=== PATIENT | female | born 1970 | race Caucasian/White ===

== ENCOUNTER → 2020-03-14 11:57 | Outpatient (CLI) | payer OTHER, SELFPAY ==
[2020-03-14 13:43] LABS: Free T3, Triiodothyronine Free 4.12 pg/mL (2.77-5.27); Free T4, Direct Thyroxine 0.86 ng/dL (0.78-2.19)
[2020-03-14 14:06] LABS: Thyroid Stimulating Hormone 0.933 uIU/mL (0.47-4.68)
[2020-03-15 06:09] LABS: Thyroid Peroxidase Antibodies <9 IU/mL (0-34)
[2020-03-15 20:08] LABS: Anti Thyroglobulin Antibody <1.0 IU/mL (0.0-0.9)
[2020-03-20 07:39] LABS: Triiodothyronine T3 Reverse 14.5 ng/dL (9.2-24.1)
== END ==
PROVIDERS: Family Provider Family Medicine; PCP Family Medicine; Referring Provider Family Medicine; Visit Provider Family Medicine
DX: E03.9 Hypothyroidism, unspecified (principal)
CPT/HCPCS: 36415; 84439; 84443; 84481; 84482; 86376; 86800

== ENCOUNTER → 2020-05-12 12:16 | Outpatient (CLI) | payer OTHER, SELFPAY ==
--- NOTE | 2020-05-12 12:17 | DI.MRI.S_ITS ---
PROCEDURE: MR CERVICAL SPINE WO CON INDICATIONS: worsening neck pain, known degenerative ds last mri 2010 TECHNIQUE: Noncontrast sagittal T1 spin echo and T2 fast spin echo, sagittal STIR, foraminal oblique sagittal T2 fast spin echo, and axial gradient echo or T2 fast spin echo through the cervical spine. COMPARISON: [facility], MR, C-SPINE WITHOUT CONTRAST, 05/08/2009, 17:00. [facility], MR, C-SPINE WITHOUT CONTRAST, 06/08/2008, 17:38. [facility], MR, C-SPINE WITHOUT CONTRAST, 01/07/2013, 19:04. FINDINGS: Image quality: Excellent. Alignment and Curvature: There is progressive reversal of the normal cervical lordosis compared to 2013, with the apex at the C4-C5 level. Bone Marrow: Marrow demonstrates normal overall signal. Spinal Cord: Visualized spinal cord has normal size and signal. No cerebellar tonsillar herniation. Paraspinous Soft Tissues: No paravertebral masses. Prevertebral soft tissues are normal in thickness. C2-C3: The disc height is well-preserved. Loss of disc signal is seen at this level. Mild to moderate disc osteophyte complex is seen, which is eccentric to the right. There is a mild right foraminal disc osteophyte protrusion seen. There is mild right-sided and [id number] left-sided facet hypertrophy seen. No significant neural foraminal or central canal narrowing can be seen. When comparison is made with the prior examination, these findings are similar. C3-C4: The disc height is well-preserved. Loss of disc signal is seen at this level. Moderate disc osteophyte complex is seen, with a central disc osteophyte protrusion. Mild to moderate facet hypertrophy is seen. There is at least moderate bilateral neural foraminal narrowing seen. Mild to moderate central canal narrowing is seen. There is associated mass effect upon the ventral spinal cord. These imaging findings have progressed compared to the prior study. C4-C5: [id number]-ub-[id number] loss of disc height and disc signal can be seen. Moderate disc osteophyte complex is seen, with a central/right disc osteophyte extrusion, with mild inferior migration of the disc material, as on series 4, images 24 and 25 and on series 3, image 7. There is mild right-sided and [id number] left-sided facet hypertrophy seen. There is at least moderate bilateral neural foraminal narrowing seen. Moderate central canal narrowing is seen. There is associated mass effect upon the ventral spinal cord. There has been progression compared to 2013. C5-C6: Moderate loss of disc height is seen. Loss of disc signal is seen. Moderate disc osteophyte complex is seen, which is eccentric to the right, with a right lateral recess/foraminal disc osteophyte protrusion seen. No vertebral there is eojx-fo-yosbwugr bilateral neural foraminal narrowing seen. There is moderate to severe right-sided and at least moderate left-sided neural foraminal narrowing seen. Moderate central canal narrowing is seen. Compared to 2013, these degenerative changes have mildly progressed. C6-C7: Moderate loss of disc height is seen. Loss of disc signal is seen. Moderate generalized disc osteophyte complex is seen. There is a mild central disc osteophyte extrusion seen. Uncovertebral joint hypertrophy is seen at this level. Mild facet joint hypertrophy is seen. There is moderate to severe right-sided and moderate left-sided neural foraminal narrowing seen. At least moderate central canal narrowing is seen. There is associated mass effect upon the ventral spinal cord. These imaging findings have progressed compared to the prior study. C7-T1: No significant abnormality is seen. Note is again made of incomplete segmentation at the T2-T3 level. IMPRESSION: Multiple levels of prominent cervical spine degenerative change are seen, which have progressed compared to 2013. Dictated by: Vick Jason M.D. on 05/12/2020 at 12:32 Approved by: Vick Jason M.D. on 05/12/2020 at 12:38
== END ==
PROVIDERS: Family Provider Family Medicine; PCP Family Medicine; Referring Provider Family Medicine; Visit Provider Family Medicine
DX: M47.812 Spondylosis without myelopathy or radiculopathy, cervical region (principal); M54.2 Cervicalgia; R20.2 Paresthesia of skin
CPT/HCPCS: 72141

== ENCOUNTER → 2021-02-02 09:26 | Outpatient (CLI) | payer OTHER, SELFPAY ==
[2021-02-02 10:25] LABS: Alanine Aminotransferase 25 IU/L (<35); Albumin 4.1 g/dL (3.5-5.0); Albumin Globulin Ratio 1.5 (1.0-2.8); Alkaline Phosphatase 41 U/L (38-126); Aspartate Aminotransferase 24 IU/L (14-36); BUN Creatinine Ratio 26.7 (6-22); Bilirubin Total 0.5 mg/dL (0.2-1.3); Blood Urea Nitrogen 20 mg/dL (7-17); Calcium 9.9 mg/dL (8.4-10.2); Carbon Dioxide 28 mmol/L (22-32); Chloride 105 mmol/L (98-107); Cholesterol 206 mg/dL (140-199); Estimated Glomerular Filt Rate > 60.0 mL/min (>60); Globulin 2.7 g/dL (1.7-4.1); Glucose 106 mg/dL (70-100); HDL Cholesterol 68 mg/dL (40-60); HEMOLYSIS < 15 (0-50); LDL Cholesterol Calculated 126 mg/dL (<100); Potassium 4.5 mmol/L (3.4-5.1); Sodium 139 mmol/L (137-145); Total Protein 6.8 g/dL (6.3-8.2); Triglycerides 62 mg/dL (35-150)
[2021-02-02 10:39] LABS: Free T3, Triiodothyronine Free 5.31 pg/mL (2.77-5.27); Free T4, Direct Thyroxine 0.95 ng/dL (0.78-2.19)
[2021-02-02 10:53] LABS: Thyroid Stimulating Hormone 1.58 uIU/mL (0.47-4.68)
[2021-02-02 10:55] LABS: Estradiol, Total 28.5 pg/mL
== END ==
PROVIDERS: Family Provider Family Medicine; PCP Family Medicine; Referring Provider Family Medicine; Visit Provider Family Medicine
DX: E03.9 Hypothyroidism, unspecified (principal); Z13.1 Encounter for screening for diabetes mellitus; Z13.220 Encounter for screening for lipoid disorders; N95.1 Menopausal and female climacteric states; E89.40 Asymptomatic postprocedural ovarian failure
CPT/HCPCS: 36415; 80053; 80061; 82670; 83001; 84439; 84443; 84481

== ENCOUNTER → 2022-02-01 10:26 | Outpatient (CLI) | payer OTHER, SELFPAY ==
--- NOTE | 2022-02-01 10:29 | DI.RAD.S_ITS ---
PROCEDURE: XR ANKLE RT MIN 3V INDICATIONS: pain TECHNIQUE: 3 views of the ankle were acquired. COMPARISON: None. FINDINGS: Bones: No fractures or dislocations. Ankle mortise is normally aligned. No suspicious bony lesions. Soft tissues: No tibiotalar joint effusion. Achilles tendon appears normal. IMPRESSION: No fracture. No osseous lesion. If symptoms and/or clinical suspicion for pathology persists, further assessment with repeat radiographs (7-10 days) or advanced imaging (e.g. CT, MRI or bone scan) should be considered. Dictated by: Nanci Skelton MD, PhD on 02/01/2022 at 10:36 Approved by: Nanci Skelton MD, PhD on 02/01/2022 at 10:37
== END ==
PROVIDERS: Family Provider Family Medicine; PCP Family Medicine; Referring Provider Physician Assistant; Visit Provider Physician Assistant
DX: M25.571 Pain in right ankle and joints of right foot (principal)
CPT/HCPCS: 73610

== ENCOUNTER → 2022-04-16 12:17 | Outpatient (CLI) | payer OTHER, SELFPAY ==
[2022-04-16 15:39] LABS: Free T3, Triiodothyronine Free 3.81 pg/mL (2.77-5.27)
== END ==
PROVIDERS: Family Provider Family Medicine; PCP Pediatrics; Referring Provider Pediatrics; Visit Provider Pediatrics
DX: E03.9 Hypothyroidism, unspecified (principal)
CPT/HCPCS: 36415; 84439; 84481

== ENCOUNTER → 2023-03-05 12:26 | Outpatient (CLI) | payer OTHER, SELFPAY ==
[2023-03-05 13:42] LABS: Free T3, Triiodothyronine Free 4.54 pg/mL (2.77-5.27); Free T4, Direct Thyroxine 0.92 ng/dL (0.78-2.19)
[2023-03-05 13:56] LABS: Thyroid Stimulating Hormone 0.787 uIU/mL (0.47-4.68)
[2023-03-06 19:50] LABS: Fecal Immunochemical Test Negative (Negative)
== END ==
PROVIDERS: Family Provider Family Medicine; PCP Family Medicine; Referring Provider Family Medicine; Visit Provider Family Medicine
DX: Z12.12 Encounter for screening for malignant neoplasm of rectum (principal); Z12.31 Encounter for screening mammogram for malignant neoplasm of breast; Z12.11 Encounter for screening for malignant neoplasm of colon; E03.9 Hypothyroidism, unspecified
CPT/HCPCS: 36415; 82274; 84439; 84443; 84481

== ENCOUNTER → 2024-07-28 12:08 | Outpatient (CLI) | payer OTHER, SELFPAY | PROVIDERS: Family Provider Family Medicine; PCP Family Medicine; Visit Provider Nurse Practitioner Family | DX: J02.9 Acute pharyngitis, unspecified (principal) | CPT/HCPCS: 87070 ==

== ENCOUNTER → 2024-09-30 12:36 | Outpatient (CLI) | payer OTHER, SELFPAY | PROVIDERS: Family Provider Family Medicine; PCP Family Medicine; Visit Provider Physician Assistant | DX: R30.0 Dysuria (principal) | CPT/HCPCS: 87077; 87086; 87186 ==

== ENCOUNTER → 2024-11-11 15:57 | Outpatient (CLI) | payer OTHER, SELFPAY ==
[2024-11-11 16:33] LABS: Appearance Urine UA CLEAR; Bilirubin Urine UA NEGATIVE (NEGATIVE); Color Urine UA YELLOW; Glucose Urine UA NEGATIVE (Negative); Ketones Urine UA NEGATIVE (NEGATIVE); Leukocyte Esterase Urine UA NEGATIVE (NEGATIVE); Nitrite Urine UA NEGATIVE (Negative); Occult Blood Urine UA TRACE-INTACT (Negative); Protein Urine UA NEGATIVE (Negative); Urobilinogen Urine UA 0.2 E.U./dL (0.2)
[2024-11-11 16:34] LABS: pH Urine UA 6.5 (4.5-8.0)
[2024-11-11 16:39] LABS: Bacteria Urine Occasional (0-1); Culture Indicated Urine Cult Not Indicated; RBC Urine 1-5/HPF (0-5/HPF); Squamous Epithelial Cell Urine 0-1 /HPF (0-5/HPF); Urine Volume 10mL (spun); WBC Urine 0-1/HPF (0-5/HPF)
[2024-11-11 16:51] LABS: Hematocrit 38.9 % (36-46); Hemoglobin 13.2 g/dL (12.0-16.0); Mean Corpuscular Hemoglobin 29.5 PG (26-34); Mean Corpuscular Volume 86.7 fL (80-100); Platelet Count 248 X10^3/uL (150-400); Red Blood Cell Count 4.49 X10^6/uL (4.0-5.2); Red Cell Distribution Width 12.6 % (11.6-14.8); White Blood Cell Count 5.3 X10^3/uL (4.5-11.0)
[2024-11-11 17:02] LABS: Hemoglobin A1C% w Est Avg Glu 4.9 % (4.0-6.0)
[2024-11-11 17:07] LABS: Alanine Aminotransferase 21 IU/L (<35); Albumin 4.4 g/dL (3.5-5.0); Albumin Globulin Ratio 1.5 (1.0-2.8); Alkaline Phosphatase 50 U/L (38-126); Aspartate Aminotransferase 26 IU/L (14-36); BUN Creatinine Ratio 22.2 (6-22); Bilirubin Total 0.2 mg/dL (0.2-1.3); Blood Urea Nitrogen 20 mg/dL (7-17); Calcium 9.5 mg/dL (8.4-10.2); Carbon Dioxide 27 mmol/L (22-32); Chloride 103 mmol/L (98-107); Cholesterol 246 mg/dL (140-199); Estimated Glomerular Filt Rate > 60 mL/min (>60); Glucose 96 mg/dL (70-100); HDL Cholesterol 53 mg/dL (40-60); HEMOLYSIS < 15 (0-50); LDL Cholesterol Calculated 175 mg/dL (<100); Potassium 4.1 mmol/L (3.4-5.1); Sodium 137 mmol/L (137-145); Total Protein 7.4 g/dL (6.3-8.2); Triglycerides 88 mg/dL (35-150)
[2024-11-11 17:34] LABS: TSH w/ Reflex to FT4 0.62 uIU/mL (0.47-4.68)
[2024-11-12 08:09] LABS: CRP, High Sensitivity 2.76 mg/L (0.00-3.00)
[2024-11-12 14:11] LABS: Fecal Immunochemical Test Negative (Negative)
== END ==
PROVIDERS: Family Provider Family Medicine; PCP Family Medicine; Referring Provider Family Medicine; Visit Provider Family Medicine
DX: Z00.00 Encounter for general adult medical examination without abnormal findings (principal); N12 Tubulo-interstitial nephritis, not specified as acute or chronic; E88.810 Metabolic syndrome; E66.9 Obesity, unspecified; Z12.11 Encounter for screening for malignant neoplasm of colon
CPT/HCPCS: 36415; 80053; 80061; 81001; 82274; 83036; 84443; 85027; 86140